=== PATIENT | female | born 1985 ===

== ENCOUNTER 2017-04-11 08:03 | Emergency (ER) | payer OTHER, SELFPAY ==
[2017-04-11 08:03] VITALS: BMI 30.8
[2017-04-11 08:15] VITALS: BP 109/70; PULSE 65; RESP 18; TEMP 98.5; O2SAT 100
[2017-04-11] MEDS ORDERED: Sodium Chloride 0.9% 1,000 ML IV STA (09:37)
[2017-04-11 09:59] LABS: BASO % 0.2 % (0.0-2.0); HEMATOCRIT 39.2 % (34.0-47.0); LYMPH # 0.8 K/uL (1.0-4.3); LYMPH % 8.2 % (20.0-40.0); MEAN CELL VOLUME 90.9 fl (81.0-99.0); MEAN CORPUSCULAR HEMOGLOBIN 30.4 pg (27.0-31.0); MEAN CORPUSCULAR HGB CONC 33.4 g/dL (33.0-37.0); MEAN PLATELET VOLUME 9.3 fl (7.2-11.7); MONO # 0.2 K/uL (0.0-0.8); MONO % 1.6 % (0.0-10.0); NEUT # 8.8 K/uL (1.8-7.0); PLATELET COUNT 231 K/uL (130-400); RED CELL DISTRIBUTION WIDTH 13.8 % (11.5-14.5); WHITE BLOOD COUNT 9.8 K/uL (4.8-10.8)
[2017-04-11 10:09] LABS: ALB/GLOB RATIO 1.3 (1.0-2.1); ALKALINE PHOSPHATASE 48 U/L (38-126); ALT/SGPT 37 U/L (9-52); AST/SGOT 15 U/L (14-36); BILIRUBIN,TOTAL 0.4 mg/dl (0.2-1.3); BLOOD UREA NITROGEN 5 mg/dl (7-17); CALCIUM 8.7 mg/dL (8.4-10.2); CARBON DIOXIDE 22 mmol/L (22-30); CHLORIDE 105 mmol/L (98-107); GFR AFRICAN-AMERICAN > 60; GLUCOSE,RANDOM 120 mg/dL (65-105); LIPASE 99 U/L (23-300); POTASSIUM 3.5 MMOL/L (3.6-5.0); SODIUM 139 mmol/l (132-148); TOTAL PROTEIN 7.3 G/DL (6.3-8.2)
--- NOTE | 2017-04-11 10:16 | ED PDOC ---
HPI: Abdomen Time Seen by Provider: 04/11/17 09:19 Chief Complaint (Nursing): Abdominal Pain History Per: Patient History/Exam Limitations: no limitations Onset/Duration Of Symptoms: Gradual Outside of [place] travel?: No Current Symptoms Are (Timing): Still Present Severity: Mild Location Of Pain/Discomfort: RUQ Quality Of Discomfort: Pressure Associated Symptoms: Back Pain (right flank). denies: Fever, Chills, Nausea, Vomiting, Diarrhea, Loss Of Appetite Exacerbating Factors: None Alleviating Factors: None Past Medical History Reviewed: Historical Data, Nursing Documentation, Vital Signs Vital Signs: Last Vital Signs Temp 98.5 F 04/11/17 08:14 Pulse 65 04/11/17 08:14 Resp 18 04/11/17 08:14 BP 109/70 04/11/17 08:14 Pulse Ox 100 04/11/17 10:18 - Medical History Other PMH: cholelithiasis - Surgical History Surgical History: No Surg Hx - Family History Family History: States: No Known Family Hx - Living Arrangements Living Arrangements: With Family - Social History Current smoker - smoking cessation education provided: No - Home Medications Home Medications: Ambulatory Orders Medication Instructions Recorded Ca/Cholecalciferol/Fe/Folic 1 1 tab PO 05/01/15 [Basic's Vitamins] - Allergies Allergies/Adverse Reactions: Allergies Allergy/AdvReac Type Severity Reaction Status Date / Time No Known Allergies Allergy Verified 04/30/15 20:24 Review of Systems ROS Statement: Except As Marked, All Systems Reviewed And Found Negative Constitutional: Negative for: Fever, Chills Respiratory: Negative for: Cough Gastrointestinal: Positive for: Abdominal Pain (right upper quadrant). Negative for: Nausea, Vomiting Genitourinary Female: Negative for: Dysuria, Frequency, Hematuria, Vaginal Discharge Musculoskeletal: Positive for: Back Pain (right flank). Negative for: Neck Pain , Shoulder Pain Physical Exam - Reviewed Nursing Documentation Reviewed: Yes Vital Signs Reviewed: Yes - Physical Exam Appears: Positive for: Well, Non-toxic, No Acute Distress Head Exam: Positive for: ATRAUMATIC, NORMAL INSPECTION, NORMOCEPHALIC Skin: Positive for: Normal Color, Warm, DRY Eye Exam: Positive for: EOMI, Normal appearance, PERRL ENT: Positive for: Normal ENT Inspection Neck: Positive for: Normal, Painless ROM Cardiovascular/Chest: Positive for: Regular Rate, Rhythm Respiratory: Positive for: CNT, Normal Breath Sounds Gastrointestinal/Abdominal: Positive for: Bowel Sounds, Soft, Tenderness (right quadrant, mild.) Back: Positive for: Normal Inspection, R CVA Tenderness Extremity: Positive for: Normal ROM Neurologic/Psych: Positive for: Alert, Oriented - Laboratory Results Result Diagrams: 04/11/17 09:45 04/11/17 09:45 - ECG O2 Sat by Pulse Oximetry: 100 - Radiology X-Ray: Read By Radiologist - Physician Consult Information Physician Contacted: Fabián Beal Outcome Of Conversation: patient seen by DR. Beal. Surgical intervention not indicated at present. low fat diet and followup. Disposition - Clinical Impression Clinical Impression: Cholelithiasis complicating in first trimester, antepartum - Patient ED Disposition Is Patient to be Admitted: No Doctor Will See Patient In The: Office Counseled Patient/Family Regarding: Diagnosis, Need For Followup, Rx Given - Disposition Referrals: [facility] [Outside] [facility] [Outside] Disposition: Routine/Home Disposition Time: 12:06 Condition: STABLE Instructions: Low Fat Diet (GEN), Gallstones (ED) - POA Present On Arrival: None
--- NOTE | 2017-04-11 10:34 | US ---
HISTORY: Ruq pain right flank pain h/o GB stones COMPARISON: 02/06/2017 TECHNIQUE: Sonographic evaluation of the abdomen. FINDINGS: LIVER: Measures 15.1 cm. Normal echogenicity of the liver parenchyma. No mass. No intrahepatic bile duct dilatation. GALLBLADDER: Multiple gallstones with a positive Lauren sign elicited. The gallbladder wall is 3.4 mm which appears borderline minimally thickened. (3 mm top-normal). No pericholecystic fluid suggested. Nevertheless a cholecystitis status is needs to be considered COMMON BILE DUCT: Measures 3.1 mm. No stones. No dilatation. PANCREAS: Limited evaluation due to obscuring bowel gas RIGHT KIDNEY: Measures 11.2 x 5.9 x 5.2cm. Normal echogenicity. No calculus, mass, or hydronephrosis. LEFT KIDNEY: Measures 10.9 x 5.7 x 5 point sickcm. Normal echogenicity. No calculus, mass, or hydronephrosis. SPLEEN: Normal in size and contour. No mass. AORTA: No aneurysmal dilatation. IVC: Unremarkable. OTHER FINDINGS: None. IMPRESSION: Multiple gallstones with borderline gallbladder wall thickening. Given the positive elicited Lauren sign, these ultrasound findings, a cholecystitis needs to be considered. No dilated ducts. Follow-up recommend. Recommended
[2017-04-11 10:36] LABS: NEUTROPHIL 89 % (42-75); TOTAL CELLS COUNTED 100
[2017-04-11 11:03] LABS: RBC URINE 3 /hpf (0-3); URINE BACTERIA RARE (<OCC); URINE BILIRUBIN NEGATIVE (NEGATIVE); URINE BLOOD NEGATIVE (NEGATIVE); URINE COLOR YELLOW (YELLOW); URINE GLUCOSE (UA) NEG (Normal); URINE KETONE 20 mg/dL (NEGATIVE); URINE LEUKOCYTE ESTERASE MOD Leu/uL (Negative); URINE PROTEIN 30 mg/dL (NEGATIVE); URINE UROBILINOGEN 0.2-1.0 mg/dL (0.2-1.0); WBC URINE 5 /hpf (0-5)
== END 2017-04-11 12:22 | disposition home or self-care (01) ==
LOC: H.ER 08:03 → SUPCPDRO 08:03 → H.ER 12:22
DX: K80.20 Calculus of gallbladder without cholecystitis without obstruction (principal); Z33.1 Pregnant state, incidental

== ENCOUNTER 2017-10-20 17:41 | Inpatient (IN) | payer MEDICAID, SELFPAY ==
[2017-10-20 18:27] VITALS: BMI 29.2
[2017-10-20] MEDS ORDERED: Lactated Ringer's 1,000 ML IV SCH (18:30)
[2017-10-20] MEDS ORDERED: Lidocaine 1% Inj (20ml) ONE (19:11)
[2017-10-20] MEDS ORDERED: Oxytocin 30 units/LR 500ML 30 U/500 ML BAG IV ONE (19:27)
[2017-10-20] MEDS ORDERED: Oxycodone/Acetaminophen 5/325 mg Tab PO PRN ×4 (19:47→19:59)
[2017-10-20] MEDS ORDERED: Benzocaine/Menthol SPRAY TOP PRN (19:47)
--- NOTE | 2017-10-20 19:57 | OBADHP ---
Datetime: 10/20/2017 19:55 Admit Comment, IP Provider: 32-year-old with LMP 01/21/2017 and EDC 12 32,017 x 13 week ult rasound presents to relate to [facility] with complaints of onset of contractions 8 AM with increased pain intensity at 4:45 PM. She denied rupture of membranes.states OB history unremarkable Patient stated she was told she would need antibiotics when she was in labor. Past OB history: 1 with history of gestational diabetes mellitus past surgical history denie s no known drug allergiesmedications: vitamin social history denies tobacco use Impression: 40 weeks Active labor Plan: Admit for expected vaginal delivery Ampicillin 2 Green 2 g Routine OB and IV fluids with lactated Ringer's. IP Admit Plan: Admit to unit Datetime: 10/20/2017 19:44 Pelvic Type - PN: Adequate Extremities - PN: Normal Abdomen - PN: Normal Lungs - PN: Normal Neurologic - PN: Normal HEENT - PN: Normal General - PN: Normal FHR - Baseline A Provider: 130 Membranes, Provider: Intact Comments, ACOG Physical Exam: OB labs one-hour GCT 155 3 hour GTT normal first trimester serum scree n negative GBS culture 2016 negative hep B surface antigen negative HIV and in July and blood t ype O+ rubella immune IP Chief Complaint: Uterine contractions NICHD Variability Prov Fetus A: Moderate 6-25bpm Dilatation, Provider: 10 Effacement, Provider: 100 Station, Provider: -1 Genitourinary Exam: Normal EGA AdmitDate IP: 40.0 IP Adm Impression: Term, intrauterine
--- NOTE | 2017-10-20 20:00 | OBDS ---
DELIVERY PERSONNEL Delivery Doctor: Keanu Simms MD Media Operator: Marlena Da Silva RN Resident: Dr Leong MATERNAL INFORMATION Delivery Anesthesia: None Medications in Delivery: none Estimated Blood Loss (ml): 300 Placenta Cultured: No Maternal Complications: None RN Comments: patient delivered viable female, was placed on maternal chest. apgars were 9 and 9. patient delivered placenta, pitocin 30units infusing. infant returned to mother for skin to skin and bonding/latching. and patient remained in stable condition. Provider Comments: Intrapartum DX: 40 weeks': Precipitous labor diagnosis: Same; precipitous vaginal delivery Procedure: ; repair of second degree laceration; placenta delivered spontaneously and intact OB:wiliam mejía Resident: PGY [address] dr leong Anesthesia: 1% local lidocaine Complications none Findings: Viable female : 3355 g: Apgars 9 and 9 Estimated blood loss: 300 mL Destination patient to remain to birthing room with LABOR SUMMARY EDC: 10/20/2017 00:00 No. Babies in Womb: 1 Attempted: No Labor Anesthesia: None LABOR INFORMATION Reason for Induction: Not Applicable Onset of Labor: 10/20/2017 08:00 Complete Dilatation: 10/20/2017 17:55 Oxytocin: N/A Group B Beta Strep: Negative MEMBRANES Membranes Rupture Method: Spontaneous Rupture of Membranes: 10/20/2017 18:11 Length of Rupture (hrs): 0.00 Amniotic Fluid Color: Light Meconium Amniotic Fluid Amount: Moderate Amniotic Fluid Odor: Normal STAGES OF LABOR Stage 1 hrs: 9 Stage 1 min: 55 Stage 2 hrs: 0 Stage 2 min: 16 Stage 3 hrs: 0 Stage 3 min: 14 Total Time in Labor hrs: 10 Total Time in Labor min: 25 VAGINAL DELIVERY Episiotomy: None Laceration Extension: Second Degree Laceration Type: Perineal Laceration Repair: Yes Laceration Repair Note: Repair of 2nd degree perineal laceration with 3-0 Vicryl rapide Initial Vag Sponge Count: 5 Final Vag Sponge Count: 5 Initial Vag Sharps Count: 2 Final Vag Sharps Count: 2 Sponge Count Correct: Yes Sharps Count Correct: Yes BABY A INFORMATION Infant Delivery Date/Time: 10/20/2017 18:11 Method of Delivery: Vaginal Born in Route : No : N/A Forceps: N/A Vacuum Extraction: N/A Shoulder Dystocia : No SHOULDER DYSTOCIA BABY A Infant Delivery Date/Time: 10/20/2017 18:11 PRESENTATION/POSITION BABY A Presentation: Cephalic Cephalic Presentation: Vertex Breech Presentation: N/A PLACENTA INFORMATION BABY A Placenta Delivery Time : 10/20/2017 18:25 Placenta Method of Delivery: Spontaneous Placenta Status: Delivered SCORES BABY A Heart Rate 1 min: >100 bpm Resp Effort 1 min: Good Cry Reflex Irritability 1 min: Cough or Sneeze or Pulls Away Muscle Tone 1 min: Active Motion Color 1 min: Body [place], Extremities Blue Resuscitation Effort 1 min: N/A SCORE 1 MIN: 9 Heart Rate 5 min: >100 bpm Resp Effort 5 min: Good Cry Reflex Irritability 5 min: Cough or Sneeze or Pulls Away Muscle Tone 5 min: Active Motion Color 5 min: Body [place], Extremities Blue Resuscitation Effort 5 min: N/A SCORE 5 MIN: 9 INFANT INFORMATION BABY A Gestational Age at Delivery: 40.0 Gestational Status: Term Outcome : Liveborn Infant Condition : Stable Infant Sex: Female WEIGHT/LENGTH BABY A Infant Birthweight (gms): 3355 Weight (lb): 7 Infant Weight (oz): 6 CORD INFORMATION BABY A No. Cord Vessels: 3 Nuchal Cord : Around Neck x1, Loose Cord Blood Taken: Yes Suction: Mouth; Nose
[2017-10-20 20:05] LABS: BASO # 0.1 K/uL (0.0-0.2); BASO % 0.5 % (0.0-2.0); EOS % 0.2 % (0.0-4.0); HEMOGLOBIN 11.9 g/dL (12.0-16.0); LYMPH # 1.2 K/uL (1.0-4.3); LYMPH % 11.2 % (20.0-40.0); MEAN CELL VOLUME 85.9 fl (81.0-99.0); MEAN CORPUSCULAR HGB CONC 32.5 g/dL (33.0-37.0); MEAN PLATELET VOLUME 9.6 fl (7.2-11.7); MONO # 0.3 K/uL (0.0-0.8); MONO % 2.7 % (0.0-10.0); NEUT # 8.9 K/uL (1.8-7.0); NEUT % 85.4 % (50.0-75.0); RBC 4.27 Mil/uL (3.80-5.20); RED CELL DISTRIBUTION WIDTH 15.4 % (11.5-14.5); WHITE BLOOD COUNT 10.4 K/uL (4.8-10.8)
[2017-10-20] MEDS: Benzocaine/Menthol SPRAY TOP PRN (21:18)
[2017-10-21 07:22] LABS: HEMOGLOBIN 9.2 g/dL (12.0-16.0); MEAN CELL VOLUME 86.5 fl (81.0-99.0); MEAN CORPUSCULAR HEMOGLOBIN 28.1 pg (27.0-31.0); MEAN CORPUSCULAR HGB CONC 32.5 g/dL (33.0-37.0); RBC 3.27 Mil/uL (3.80-5.20); RED CELL DISTRIBUTION WIDTH 15.4 % (11.5-14.5); WHITE BLOOD COUNT 9.4 K/uL (4.8-10.8)
--- NOTE | 2017-10-21 09:03 | OBPPN ---
Datetime: 10/21/2017 07:37 PP Pain Prov: Within normal limits PP Nausea Prov: Denies PP Flatus Prov: Yes PP BM Prov: No PP Breasts Prov: Normal PP Heart Prov: Normal PP Lungs Prov: Normal PP Abdomen/Uterus Prov: Normal PP Lochia Prov: Normal PP Vulva/Perineum Prov: Normal PP CVA Tenderness Prov: Not Done PP Extremities Prov: Normal PP C/S Incision Prov: Not Applicable PP Progress Prov: Normal PP Impression Prov: Normal progression PP Plan Prov: Continue present management PP Progress Note Prov: S: 32 YO s/p NVD on 10/20/17. PPD #1. Seen and examined at bedside, FOB by bedside. No acute events overnight. Pt reports mild pelvic pain controlled with pain meds. Ambulat ing to the bathroom without dizziness. Breast/Bottle feeding without difficulty. Tolerating PO diet w ell. Lochia is similar to menses volume. -Bowel movement, passing gas per rectum. Denies fever/chills , diarrhea, nausea/vomiting, CP/SOB , Lightheadedness, calf pain. O: GEN: A_O, Resting comfortably in bed, NAD HEENT: White sclera, pink conjunctiva, oral mucosa moist. Lungs: CTA B/L, no wheezing ,rhonci, or rales Cardio: RRR, S1,S2 NL ABD: ND, +BS, firm fundus above the umbilical level. EXT: No edema, calves nontender NEURO: AAOx3 Assessment/Plan: 32 YO s/p NVD on 10/20/17. Gave to baby girl. Pt remains afebrile, rah erating pain with medication, doing well on PPD 1. Continue regular diet OOB with caution Percocet for mod/severe pain and Ibuprofen for mild pain. Colace and Simethicone for constipation Encourage and ambulation Jacque Ortega, PGY I The patient was seen with the resident I agree with the notes Vital Signs Provider PP: Reviewed; Within Normal Limits
--- NOTE | 2017-10-22 08:01 | OBDCSUM ---
Datetime: 10/22/2017 06:13 Discharged to, Provider: Home Follow up at, Provider: [facility] Disch Instr Activity: Normal activity Disch Instr Diet: Regular Discharge Instructions, Provider: Routine instructions given Discharge Diagnosis, Provider: Term Delivered Discharge Time: 10/22/2017 11:00 Follow up in weeks, Provider: 4-6 weeks Disch Referrals: None Contraception discussed, Prov: No Disch Activity Restrictions: No lifting; Minimize stair-climbing; No sexual activity; Nothing in vag fahad - [place], tampons, douche Discharge Comment, Provider: -Encourage . Ambulate with caution, no heavy lifting, noth ing per vagina for 6 weeks. -Continue PNV 1 tab PO daily. -Ibuprofen 600mg PO PRN for moderate pain. Feosol 325 mg PO for anemia. Colace 100 mg PO HS for trent wel movement enhancement. -If excessive bleeding, intolerable pain or fever despite medications, go to ER. -Pt instructed to set appointment within 4-6 weeks for post- evaluation.
--- NOTE | 2017-10-22 08:01 | OBPPN ---
Datetime: 10/22/2017 06:10 PP Pain Prov: Within normal limits PP Nausea Prov: Denies PP Flatus Prov: Yes PP BM Prov: No PP Heart Prov: Normal PP Lungs Prov: Normal PP Abdomen/Uterus Prov: Normal PP Lochia Prov: Normal PP CVA Tenderness Prov: Not Done PP Progress Prov: Normal PP Impression Prov: Normal progression PP Plan Prov: Discharge PP Progress Note Prov: S: 32 y/o now on PPD 2. Pt had a on 10/20/17 with 2nd degree perin eal laceration. Pt seen and examined by bedside. No acute events overnight. Pt with mild pelvic pain which is well controlled with provided analgesics. Pt tolerating PO, ambulation and urinating with no difficulties. Pt and supplementing with formula. Lochia described as less than menses. Pt passing gasses by rectum but no bowel movement yet. Pt denies fever, headache, visual disturbance s, CP. SOB, N/V or pruritus. O: post- H/H was 9.2/28.3 PE Gen: Pt resting comfortably on bed, AAOx3, not in acute distress. Lungs: CTA B/L. No W/R/R. CV: S1 S2 present, regular rhythm. Abd: BS+, soft, fundus of uterus firm and below umbilicus. Ext: no edema, neg Bhavik's sign, non-tender calves. NEURO/PSYCH: no grossly focal deficit, preserved affect and mood. A/P: 32 y/o F on PPD 2, recovering well from , with anemia. -Will discharge pt home today. -Encourage . Ambulate with caution, no heavy lifting, nothing per vagina for 6 weeks. -Continue PNV 1 tab PO daily. -Ibuprofen 600mg PO PRN for moderate pain. Feosol 325 mg PO for anemia. Colace 100 mg PO HS for trent wel movement enhancement. -If excessive bleeding, intolerable pain or fever despite medications, go to ER. -Pt instructed to set appointment within 4-6 weeks for post- evaluation. Raymond Marshall PGY-1 OB Hospitalist Addendum: Pt seen and examined by me. Agree w/ above. PPD 2 s/p , doing well, breast and bottle feeding. Discharge home today. (ES) IP PP Procedures: None Vital Signs Provider PP: Reviewed
[2017-10-22] MEDS: Benzocaine/Menthol SPRAY TOP PRN (08:40)
[2017-10-22 17:02] VITALS: BP 123/83; PULSE 72; RESP 20; TEMP 97.8; O2SAT 99
== END 2017-10-22 12:50 | disposition home or self-care (01) | DRG 373 ==
LOC: H.EROB2 17:41 → H.L&D 18:21 → H.OB/GYN 20:20
PROVIDERS: ATTEND Obstetrics & Gynecology
PROC: 10E0XZZ Delivery of Products of Conception, External Approach (ICD-10-PCS; principal; 2017-10-20)
PROC: 0KQM0ZZ Repair Perineum Muscle, Open Approach (ICD-10-PCS; 2017-10-20)
PROC: 4A1HXCZ Monitoring of Products of Conception, Cardiac Rate, External Approach (ICD-10-PCS; 2017-10-20)
DX: O48.0 Post-term pregnancy (principal); O99.02 Anemia complicating childbirth; D64.9 Anemia, unspecified; O69.81X0 Labor and delivery complicated by cord around neck, without compression, not applicable or unspecified; O70.1 Second degree perineal laceration during delivery; Z3A.40 40 weeks gestation of pregnancy; Z37.0 Single live birth; Z86.32 Personal history of gestational diabetes